=== PATIENT | male | born 1970 | race Caucasian/White ===

== ENCOUNTER 2022-02-25 11:48 | Emergency (ER) | payer MEDICAID, SELFPAY ==
[2022-02-25 11:57] VITALS: BP 120/91; PULSE 86; RESP 20; TEMP 36.6; O2SAT 100
--- NOTE | 2022-02-25 12:01 | ED.SKABFB ---
HPI - Skin/Abscess/Foreign Bdy General Chief complaint: Skin/Abscess/Foreign Body Stated complaint: insect bite. Time Seen by Provider: 02/25/22 12:01 Source: patient Mode of arrival: ambulatory Limitations: no limitations History of Present Illness HPI narrative: 51-year-old male presented for complaint of left elbow/forearm redness and swelling, onset today. He states that the center there is a firm painful knot. No active drainage. He endorses about 1 week ago scraping the elbow while riding the lawnmower, which resulted in an abrasion. The knot is distal to the abrasion with surrounding redness and swelling. Pain is 10/10. Has not taken anything for pain. NKDA, denies ivda. Hx brown recluse spider bite to LLE. Related Data Home Medications Medication Instructions Recorded Confirmed Flexeril 02/25/22 gabapentin 02/25/22 Allergies Allergy/AdvReac Type Severity Reaction Status Date / Time No Known Allergies Allergy Verified 02/25/22 11:59 Review of Systems Review of Systems: CONSTITUTIONAL: Denies body aches, fever, chills, or sweats. EYES: Denies visual changes, redness, or discharge. ENT: Denies rhinorrhea, congestion, sore throat, or otalgia. CARDIOVASCULAR: Denies chest pain, palpitations, or edema. RESPIRATORY: Denies cough or dyspnea. GASTROINTESTINAL: Denies abdominal pain, nausea, vomiting, or diarrhea. GENITOURINARY: Denies dysuria or hematuria. SKIN: endorses redness and swelling to left elbow/forearm MUSCULOSKELETAL: Denies back pain, joint pain, or myalgia. NEUROLOGIC: Denies headache, numbness, tingling, or weakness. PSYCH: Denies depression or anxiety. PMFSH Comments At time of signature, I have reviewed and agree with nursing past medical, surgical, social and family history unless otherwise noted. Please see nursing chart for further information. There is no relevant family history pertinent to the presenting complaint Exam Narrative: GENERAL: Well-appearing HEAD: Normocephalic, atraumatic. EYES: conjunctivae clear, and EOMI. ENT: Mucous membranes moist. Oropharynx without edema, erythema or lesions. NECK: Supple. No lymphadenopathy CHEST: Clear to auscultation. No respiratory distress. HEART: Regular rate and rhythm. SKIN: Warm, dry. Left elbow with abrasion approx 1inch diameter, no active drainage; about 2 inches distal to elbow is firm subcutaneous nodule/flat, approx 1cm diameter with surrounding edema and erythema with mild warmth c/w cellulitis; swelling and erythema not circumferential it spares the volar surface of forearm; no active drainage or fluctuance, center is tender with palpation NEURO: Alert and oriented x3. PSYCH: Normal mood and affect Course Course Emergency Course: Patient is aware of diagnosis, understands and agrees to treatment plan. Anticipatory guidance given. Patient agrees to follow-up as directed and is aware of reasons to seek care at the emergency department. Portions of this record may have been created with voice recognition software Level of Care: Express Care Visit Vital Signs Vital signs: Vital Signs Temperature 97.8 F 02/25/22 11:57 Pulse Rate 86 02/25/22 11:57 Respiratory Rate 20 02/25/22 11:57 Blood Pressure 120/91 H 02/25/22 11:57 Pulse Oximetry 100 02/25/22 11:57 Temperature 97.8 F 02/25/22 11:57 Pulse Rate 86 02/25/22 11:57 Respiratory Rate 20 02/25/22 11:57 Blood Pressure 120/91 H 02/25/22 11:57 Pulse Oximetry 100 02/25/22 11:57 Reviewed MDM - Skin/Abscess/Foreign Bdy MDM Narrative Medical decision making narrative: Does not appear at this time to be erythema multiforme, bullous, SJS, TEN; no evidence at this time to suggest RMSF, endocarditis or Lyme disease Patient looks well, nontoxic; no neurologic signs or symptoms; no headache, photophobia or neck pain; afebrile; c/w cellulitis. Pt appropriate for initial outpatient treatment; no ivda or concern for MRSA at this time. Discussed the import
== END 2022-02-25 12:18 | disposition home or self-care (01) ==
PROVIDERS: Emergency Provider Nurse Practitioner Family
DX: L03.114 Cellulitis of left upper limb (principal)
CPT/HCPCS: 99213; G0463

== ENCOUNTER 2023-08-27 17:29 | Emergency (ER) | payer BC, SELFPAY ==
--- NOTE | ~2023-08-27 | XR_ITS ---
EXAMINATION: XR hand LT min 3V INDICATION: Left hand pain TECHNIQUE: Three views of the left hand are obtained. COMPARISON: None available FINDINGS: Bone alignment is normal. There is no fracture. The joint spaces are normal. There appears to be an old ulnar styloid avulsion with nonunion. There is mild soft tissue swelling at the bases of the fourth and fifth proximal phalanges. There appears to be a 1 mm radiopaque foreign body in the s oft tissues dorsal to the head of the fifth metacarpal. IMPRESSION: 1. No acute osseous abnormality. 2. Probable tiny radiopaque soft tissue foreign body. The head of the fifth metacarpal. Reviewed, dictated and finalized at location F. IMPRESSION: 1. No acute osseous abnormality. 2. Probable tiny radiopaque soft tissue foreign body. The head of the fifth met acarpal.
[2023-08-27 17:30] VITALS: BP 159/100; PULSE 103; RESP 16; TEMP 36.8; O2SAT 100
[2023-08-27] MEDS: LIDOCAINE HCL 1% LOCAL INJ 10 ML VIAL (18:05)
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
[2023-08-27] MEDS: TETANUS,DIPHTHERIA,AC PERTUSSIS ADULT (0.5 ML) BOOSTRIX IM (18:11)
== END 2023-08-27 19:49 | disposition home or self-care (01) ==
PROVIDERS: Emergency Provider Physician Assistant; PCP Physician Assistant
DX: S61.412A Laceration without foreign body of left hand, initial encounter (principal); Z23 Encounter for immunization; W22.8XXA Striking against or struck by other objects, initial encounter
CPT/HCPCS: 12042; 73130; 90471; 90715; 99283

== ENCOUNTER 2024-03-22 12:50 | Emergency (ER) | payer OTHER, SELFPAY ==
--- NOTE | ~2024-03-22 | CT_ITS ---
EXAMINATION: CT brain wo con DATE: 03/22/2024 13:39 INDICATION: Head injury. TECHNIQUE: Computed tomography (CT) of the head was performed without intravenous contrast. The mA wa s adjusted according to patient size. Iterative reconstruction technique was employed. The dose-lengt h product was 605.33 mGy-cm. COMPARISON: None FINDINGS: There is no intracranial hemorrhage, acute infarction, or abnormal intracranial mass lesion . There are scattered areas of low attenuation in the cerebral white matter. The ventricles are vandana l in size. The paranasal sinuses are clear. The orbits are normal. There is a trace left mastoid effu amrita. IMPRESSION: 1. Mild nonspecific cerebral white matter disease, which likely represents chronic small vessel ische hailey disease. Reviewed, dictated and finalized at location A. IMPRESSION: 1. Mild nonspecific cerebral white matter disease, which likely represents ssis ssrs developer wanda small vessel ischemic disease.
--- NOTE | ~2024-03-22 | CT_ITS ---
EXAMINATION: CT lumbar spine wo con DATE: 03/22/2024 13:39 INDICATION: Low back pain. TECHNIQUE: Computed tomography (CT) of the lumbar spine was performed without intravenous contrast. A utomated exposure control and iterative reconstruction technique were employed. The dose-length produ ct was 831.62 mGy-cm. COMPARISON: None FINDINGS: There is 4 degrees dextrocurvature of lumbar spine. There is 2 mm anterolisthesis of L4 on L5. There are changes of anterior and posterior fusion procedures at L5-S1 with healed interbody bone graft, anterior plate and screws, and pedicle screws. There is moderately decreased disc height at L 1-L2 and mildly decreased disc height at L2-L3, L3-L4, and L4-L5. The following disc levels are speci fically discussed: L1-L2: The disc is bulging. There is moderate bilateral facet joint osteoarthritis. There is mild naveed ateral neural foraminal stenosis. There is mild central canal stenosis. L2-L3: The disc is bulging. There is mild bilateral facet joint osteoarthritis. There is moderate rig ht and mild left neural foraminal stenosis. There is mild central canal stenosis. L3-L4: The disc is bulging. There is mild bilateral facet joint osteoarthritis. There is mild bilater al neural foraminal stenosis. There is mild central canal stenosis. L4-L5: The disc is bulging. There is severe bilateral facet joint osteoarthritis. There is moderate b ilateral neural foraminal stenosis. There is mild central canal stenosis. L5-S1: There is mild right and moderate left facet joint hypertrophy. There is mild right and moderat e left neural foraminal stenosis. There is no central canal stenosis. IMPRESSION: 1. No fracture. 2. Moderate lumbar spondylosis. 3. Anterior and posterior fusion procedures at L5-S1. Reviewed, dictated and finalized at location A.
--- NOTE | ~2024-03-22 | CT_ITS ---
EXAMINATION: CT cervical spine wo con DATE: 03/22/2024 13:39 INDICATION: Head injury. Neck pain. TECHNIQUE: Computed tomography (CT) of the cervical spine was performed without intravenous contrast. Automated exposure control and iterative reconstruction technique were employed. The dose-length pro duct was 360.66 mGy-cm. COMPARISON: None FINDINGS: There is a laceration of left neck with subcutaneous soft tissue gas. There is 3 degrees de xtrocurvature of cervical spine. Vertebral body heights are normal. There is severely decreased disc height at C5-C6 and C6-C7. The following disc levels are specifically discussed: C2-C3: There is mild bilateral uncovertebral joint osteoarthritis. There is mild bilateral facet join t osteoarthritis. There is no neural foraminal stenosis. There is no central canal stenosis. C3-C4: There is mild bilateral uncovertebral joint osteoarthritis. There is moderate right and mild l eft facet joint osteoarthritis. There is mild right neural foraminal stenosis. There is mild central canal stenosis. C4-C5: There is mild bilateral uncovertebral joint osteoarthritis. There is mild right and moderate l eft facet joint osteoarthritis. There is no neural foraminal stenosis. There is mild central canal st enosis. C5-C6: There is severe bilateral uncovertebral joint osteoarthritis. There is mild bilateral facet nida int osteoarthritis. There is mild right and moderate left neural foraminal stenosis. There is mild ce ntral canal stenosis. C6-C7: There is severe bilateral uncovertebral joint osteoarthritis. There is moderate bilateral face t joint osteoarthritis. There is mild right and moderate left neural foraminal stenosis. There is mil d central canal stenosis. C7-T1: There is no uncovertebral joint osteoarthritis. There is mild bilateral facet joint osteoarthr itis. There is no neural foraminal stenosis. There is no central canal stenosis. IMPRESSION: 1. No fracture. 2. Severe cervical spondylosis. Reviewed, dictated and finalized at location A.
[2024-03-22 12:52] VITALS: BP 134/102; PULSE 92; RESP 20; TEMP 36.6; O2SAT 99
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
[2024-03-22] MEDS: ACETAMINOPHEN 500 MG TABLET 1000 MG PO (14:51)
[2024-03-22] MEDS: IBUPROFEN 400 MG TABLET 800 MG PO (14:51)
== END 2024-03-22 15:02 | disposition home or self-care (01) ==
PROVIDERS: Emergency Provider Emergency Medicine; PCP Physician Assistant
DX: S41.111A Laceration without foreign body of right upper arm, initial encounter (principal); Y04.2XXA Assault by strike against or bumped into by another person, initial encounter
CPT/HCPCS: 12002; 70450; 72125; 72131; 99284; A9270

== ENCOUNTER 2024-07-24 08:51 | Emergency (ER) | payer OTHER, SELFPAY ==
[2024-07-24 08:52] VITALS: BP 144/102; PULSE 86; RESP 16; TEMP 36.6; O2SAT 97
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
--- NOTE | 2024-07-24 09:38 | PC.NURSE ---
Pt provided with resources for homeless shelters and alcohol and drug rehabs. Care Coordination called for assistance.
[2024-07-24 10:30] VITALS: BP 156/99; PULSE 78; RESP 18; O2SAT 97
--- NOTE | 2024-07-24 15:37 | PCCCNOTE ---
Front End Developer [employer] called to the ED for resources and bus tokens for pt. Pt is homeless and has no transportation. He was given resources for homeless shelters, food pantry's, and addiction assistance. He was also given clean, dry clothes and bus tokens. Pt was shown where the bus stop is and time it would be here, and also what stops to take to get to his destination.
== END 2024-07-24 10:30 | disposition home or self-care (01) ==
PROVIDERS: Emergency Provider Emergency Medicine
DX: F15.10 Other stimulant abuse, uncomplicated (principal); Z59.00 Homelessness unspecified; G89.29 Other chronic pain; M54.9 Dorsalgia, unspecified
CPT/HCPCS: 99281

== ENCOUNTER 2024-11-08 14:02 | Emergency (ER) | payer MEDICAID, SELFPAY ==
--- NOTE | ~2024-11-08 | CT_ITS ---
EXAMINATION: CT lumbar spine wo con DATE: 11/08/2024 15:23 INDICATION: Low back pain. TECHNIQUE: Computed tomography (CT) of the lumbar spine was performed without intravenous contrast. A utomated exposure control and iterative reconstruction technique were employed. The dose-length produ ct was 808.24 mGy-cm. COMPARISON: CT lumbar spine 03/22/2024 FINDINGS: There is 3 mm anterolisthesis of L4 on L5. Vertebral body heights are normal. There are lm nges of anterior posterior fusion procedures at L5-S1 with healed interbody bone graft, anterior plat e and screws, and pedicle screws. There is moderately decreased disc height at L1-L2 and L2-L3, mildl y decreased disc height at L3-L4, and moderately decreased disc height at L4-L5. The following disc l evels are specifically discussed: L1-L2: The disc is bulging. There is mild bilateral facet joint osteoarthritis. There is mild bilater al neural foraminal stenosis. There is mild central canal stenosis. L2-L3: The disc is bulging. There is mild bilateral facet joint osteoarthritis. There is mild bilater al neural foraminal stenosis. There is mild central canal stenosis. L3-L4: The disc is bulging. There is moderate bilateral facet joint osteoarthritis. There is mild naveed ateral neural foraminal stenosis. There is mild central canal stenosis. L4-L5: The disc is bulging. There is severe bilateral facet joint osteoarthritis. There is moderate b ilateral neural foraminal stenosis. There is mild central canal stenosis. L5-S1: There is mild bilateral facet joint hypertrophy. There is mild right and moderate left neural foraminal stenosis. There is no central canal stenosis. IMPRESSION: 1. Moderate lumbar spondylosis, stable from 03/22/2024. 2. Anterior and posterior fusion procedures at L5-S1. Reviewed, dictated and finalized at location A. LATORY SPECIALIST
--- NOTE | ~2024-11-08 | CT_ITS ---
EXAMINATION: CT brain wo con DATE: 11/08/2024 15:23 INDICATION: Head injury. Fall. TECHNIQUE: Computed tomography (CT) of the head was performed without intravenous contrast. The mA wa s adjusted according to patient size. Iterative reconstruction technique was employed. The dose-lengt h product was 908.00 mGy-cm. COMPARISON: Head CT 03/22/2024 FINDINGS: There are scattered areas of low attenuation in the cerebral white matter. There is no intr acranial hemorrhage, acute infarction, or abnormal intracranial mass lesion. The ventricles are vandana l in size. The paranasal sinuses are clear. The orbits are normal. The mastoid air cells are normal. There is a right frontal scalp lipoma. IMPRESSION: 1. Stable mild nonspecific cerebral white matter disease, which likely represents chronic small vesse l ischemic disease. Reviewed, dictated and finalized at location A. PLATER IMPRESSION: 1. Stable mild nonspecific cerebral white matter disease, which likely represen ts chronic small vessel ischemic disease.
[2024-11-08 14:04] VITALS: BP 155/105; PULSE 110; RESP 20; TEMP 36.8; O2SAT 98
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
--- NOTE | 2024-11-08 19:27 | PC.NURSE ---
Pt continually continues to increase in agitation level causing a scene in ED waiting room. Pt escorted out by ED security to edge of property. Lai ROJAS was called for a heads up.
== END 2024-11-08 19:27 | disposition left against medical advice (07) ==
PROVIDERS: Emergency Provider Physician Assistant
DX: M54.50 Low back pain, unspecified (principal); W18.30XA Fall on same level, unspecified, initial encounter; Z59.00 Homelessness unspecified
CPT/HCPCS: 70450; 72131; 99284

== ENCOUNTER 2024-11-18 14:00 | Outpatient (CLI) | payer OTHER, SELFPAY ==
--- NOTE | 2024-11-18 | ECG_ITS ---
Test Date: 2024-11-18 14:36:23 Measurements Intervals Morton Rate: 79 P: 59 SC: 150 QRS: 57 QRSD: 88 T: 72 QT: 348 QTc: 401 Interpretive Statements SINUS RHYTHM No previous ECG available for comparison Electronically Signed On 11-18-2024 14:54:13 DELINQUENT NOTICE MACHINE OPERATOR by Allyson Romo M.D.
--- NOTE | ~2024-11-18 | XR_ITS ---
EXAMINATION: XR chest 2V Exam Date/Time: 11/18/2024 14:14 INDUSTRIAL FABRIC CUTTER HISTORY: Dyspnea Comparison: None. RESULT: Lines, tubes, and devices: None. Lungs and pleura: Clear. Cardiomediastinal silhouette: Unremarkable. Other: No acute osseous or upper abdominal finding. IMPRESSION: No acute cardiopulmonary process. Reviewed, dictated and finalized at location K. STRIAL FABRIC CUTTER
== END 2024-11-18 14:01 | disposition home or self-care (01) ==
PROVIDERS: Visit Provider Internal Medicine
DX: R06.09 Other forms of dyspnea (principal); R07.9 Chest pain, unspecified
CPT/HCPCS: 71046; 93005

== ENCOUNTER 2024-11-22 02:23 | Emergency (ER) | payer OTHER, SELFPAY ==
--- NOTE | ~2024-11-22 | XR_ITS ---
Portable chest x-ray Comparison: 11/18/2024 Clinical History: Cough Findings: Lungs are clear, without focal consolidation or pleural effusion. Cardiomediastinal silho uette is stable. Bones and soft tissues are unremarkable. Impression: Clear lungs. Reviewed, dictated and finalized at location . EPOINT ADMINISTRATOR Impression: Clear lungs.
[2024-11-22 02:26] VITALS: BP 168/110; PULSE 107; RESP 15; TEMP 37.1; O2SAT 96
--- NOTE | 2024-11-22 02:32 | ECG_ITS ---
Test Date: 2024-11-22 02:34:27 Measurements Intervals [place] Rate: 107 P: 53 [place]: 152 QRS: 56 QRSD: 84 T: 71 QT: 306 QTc: 410 Interpretive Statements SINUS TACHYCARDIA ABNORMAL RHYTHM ECG Compared to ECG 11/18/2024 14:36:23 Sinus rhythm no longer present Electronically Signed On 11-22-2024 10:43:54 WELDING SYSTEMS AND EQUIPMENT REPAIRER by Niles Chawla M.D.
--- NOTE | 2024-11-22 02:32 | ED.SOB ---
HPI - SOB/Dyspnea General Chief Complaint: Shortness of Breath/Dyspnea <Paramjit Bob PA-C - Last Filed: 11/22/24 02:37> Stated Complaint: can't breath, coughing up blood <SUKH Parnell Last Filed: 11/22/24 02:37> Time Seen by Provider: 11/22/24 02:27 <SUKH Parnell Last Filed: 11/22/24 02:37> Source: patient <SUKH Parnell Last Filed: 11/22/24 02:37> Mode of arrival: ambulatory <SUKH Parnell Last Filed: 11/22/24 02:37> Limitations: no limitations <SUKH Parnell Last Filed: 11/22/24 02:37> History of Present Illness HPI Narrative: This is a 53-year-old male who presents to the ED for chief complaint of fevers, cough over the past 7 days. Patient states that he feels short of breath. Endorses lower central chest pain that was worse with coughing and with deep breathing. States that he gets pneumonia every year and feels like he has it again now. States that he has had productive cough yellow mucus and occasional blood-tinged sputum. States that he does not smoke and has not smoked for 30 years. Endorses intermittent nausea and dizziness. He is currently at the [facility]. <SUKH Parnell Last Filed: 11/22/24 02:37> Related Data Home Medications: Home Medications ?Medication ?Instructions ?Recorded ?Confirmed ?Last Taken ?Type Flexeril 02/25/22 Unknown History gabapentin 02/25/22 Unknown History <SUKH Parnell Last Filed: 11/22/24 02:37> Allergies/Adverse Reactions: Allergies Allergy/AdvReac Type Severity Reaction Status Date / Time No Known Allergies Allergy Verified 11/18/24 12:08 <SUKH Parnell Last Filed: 11/22/24 02:37> Review of Systems Review of Systems: All systems as dictated in HPI <SUKH Parnell Last Filed: 11/22/24 02:37> [facility] Past Medical History Medical History: Medical History Chronic lower back pain No active medical problems <Paramjit Bob PA-C - Last Filed: 11/22/24 02:37> Social History Social History: Social History Smoking status: Never smoker <Paramjit Bob PA-C - Last Filed: 11/22/24 02:37> Exam Narrative: GENERAL: Well-appearing, well-nourished, and in no acute distress. HEAD: Normocephalic, atraumatic. EYES: PERRLA and EOMI. ENT: Nares clear, no rhinorrhea or epistaxis. Mucous membranes moist. Oropharynx without tonsillar hypertrophy exudate or other lesions. NECK: Supple. No adenopathy or masses. CHEST: No respiratory distress. Clear to auscultation. No wheezes rales or rhonchi HEART: Regular rate and rhythm. No murmur heard. Normal peripheral pulses. ABDOMEN: Soft, nontender, nondistended, normal active bowel sounds. MSK: Normal range of motion. No edema. SKIN: Warm, dry, no rash. NEURO: Alert and oriented x4. No focal deficits. PSYCH: Normal mood and affect. <Paramjit Bob PA-C - Last Filed: 11/22/24 02:37> Course Vital Signs Vital signs: Vital Signs Temperature 98.8 F 11/22/24 02:26 Pulse Rate 107 H 11/22/24 02:26 Respiratory Rate 15 11/22/24 02:26 Blood Pressure 168/110 H 11/22/24 02:26 Pulse Oximetry 96 11/22/24 02:26 Oxygen Delivery Room Air 11/22/24 02:26 Temperature 98.8 F 11/22/24 02:26 Pulse Rate 112 H 11/22/24 04:08 Respiratory Rate 16 11/22/24 04:08 Blood Pressure 142/83 H 11/22/24 04:08 Pulse Oximetry 98 11/22/24 04:08 Oxygen Delivery Room Air 11/22/24 04:12 Fraction of Inspired Oxygen 98 11/22/24 04:12 <Paramjit Bob PA-C - Last Filed: 11/22/24 02:37> Vital Signs Temperature 98.8 F 11/22/24 02:26 Pulse Rate 107 H 11/22/24 02:26 Respiratory Rate 15 11/22/24 02:26 Blood Pressure 168/110 H 11/22/24 02:26 Pulse Oximetry 96 11/22/24 02:26 Oxygen Delivery Room Air 11/22/24 02:26 Temperature 98.8 F 11/22/24 02:26 Pulse Rate 112 H 11/22/24 04:08 Respiratory Rate 16 11/22/24 04:08 Blood Pressure 142/83 H 11/22/24 04:08 Pulse Oximetry 98 11/22/24 04:08 Oxygen Delivery Room Air 11/22/24 04:12 Fraction of Inspired Oxygen 98 11/22/24 04:12 <Zehra Larson MD - Last Filed: 11/22/24 06:08> MDM - SOB/Dyspnea MDM Narrative Medical decision making narrative: This is a 53-year-old male who presents to the ED for chief complaint of productive cough and fevers. Vitals show mildly elevated heart rate and elevated blood pressure on arrival. Afebrile. Saturating well on room air. CBC, CMP ordered as well as viral swabs. Chest x-ray ordered as well. Zofran odt given for nausea. Patient will be handed off to attending Dr. Larson at the time of shift change. <Paramjit Bob PA-C - Last Filed: 11/22/24 02:37> This is a 53-year-old male who presents to the ED for chief complaint of productive cough and fevers. Vitals show mildly elevated heart rate and elevated blood pressure on arrival. Afebrile. Saturating well on room air. CBC, CMP ordered as well as viral swabs. Chest x-ray ordered as well. Zofran odt given for nausea. Patient will be handed off to attending Dr. Larson at the time of shift change. Patient signed out to me pending workup. Blood work revealed elevated liver enzymes with an AST of 201 and an ALT of 112 otherwise unremarkable. Patient was informed that he will need to have his liver enzymes rechecked by his primary care physician for monitoring. Instructed to follow-up with his family doctor within the next 3-5 days. Viral swabs did return back positive for influenza a and patient was informed of this, and given that the patient's symptoms started 7 days ago he does not qualify for Tamiflu. Patient is requesting that his inhaler be refilled, albuterol and this script was sent to his pharmacy. He was provided with strict return precautions and instructed to return to the emergency department if any new or worsening symptoms develop. He was discharged in stable condition. <Zehra Larson MD - Last Filed: 11/22/24 06:08> Lab Data Result diagrams: 11/22/24 02:39 11/22/24 02:39 <Paramjit Bob PA-C - Last Filed: 11/22/24 02:37> Labs: Lab Results 11/22/24 11/22/24 11/22/24 Range/Units 02:36 02:39 02:42 WBC 10.3 H (4.5-10.0) K/mm3 RBC 4.63 (4.6-6.20) M/mm3 Hgb 13.7 L (14.0-18.0) g/dL Hct 40.7 L (42.0-52.0) % MCV 87.9 (80-100) fl MCH 29.6 (26-34) pg MCHC 33.7 (32-36) g/dl RDW 13.4 (11.5-14.5) % Plt Count 185 (150-375) k/mm3 MPV 9.9 (7.4-10.4) fl Immature Gran % (Auto) Not Reportable Neut % (Auto) Not Reportable Lymph % (Auto) Not Reportable [place] % (Auto) Not Reportable Eos % (Auto) Not Reportable Baso % (Auto) Not Reportable Lymph # (Auto) Not Reportable [place] # (Auto) Not Reportable Eos # (Auto) Not Reportable Baso # (Auto) Not Reportable Abs Immat Gran (auto) Not Reportable Absolute Neuts (auto) Not Reportable Absolute Nucleated RBC Not Reportable Total Counted 100 Neutrophils % (Manual) 82 H (46-73) % Band Neutrophils % 5 (0-6) % Lymphocytes % (Manual) 5.0 L (18-44) % Monocytes % (Manual) 5 (3-9) % Eosinophils % (Manual) 3 (0-4) % Nucleated RBC % Not Reportable Abs Neuts (Manual) 8.96 H (1.3-6.7) K/mm3 Abs Lymphs (Manual) 0.51 L (1.1-4.5) K/mm3 Abs Monocytes (Manual) 0.51 (0.1-0.90) K/mm3 Absolute Eos (Manual) 0.30 (0.02-0.50) K/mm3 Platelet Estimate Adequate (Adequate) Anisocytosis 1+ Schistocytes None seen Sodium 137 (137-145) mmol/L Potassium 4.4 (3.4-5.0) mmol/L Chloride 102 (98-107) mmol/L Carbon Dioxide 28 (22-30) mmol/L Anion Gap 7 (4-12) mmol/L BUN 18 (9-20) mg/dL Creatinine 0.86 (0.7-1.3) mg/dL Estim Creat Clear Calc 93 ml/min Estimated GFR > 60 (59 - ) Glucose 120 H (65-110) mg/dL Calcium 8.8 (8.4-10.2) mg/dL Magnesium 1.7 (1.6-2.3) mg/dL Total Bilirubin 0.5 (0.2-1.3) mg/dL AST 201 H (17-59) U/L ALT 112 H (6-50) U/L Alkaline Phosphatase 101 (38-126) U/L Total Protein 7.0 (6.3-8.2) g/dL Albumin 3.9 (3.5-5.1) g/dL Influenza A (RT-PCR) Positive A (Negative) Influenza B (RT-PCR) Negative (Negative) RSV (RT-PCR) Negative (Negative) SARS-CoV-2 RNA (RT-PCR) Negative (Negative) <Paramjit Bob PA-C - Last Filed: 11/22/24 02:37> Lab Results 11/22/24 11/22/24 11/22/24 Range/Units 02:36 02:39 02:42 WBC 10.3 H (4.5-10.0) K/mm3 RBC 4.63 (4.6-6.20) M/mm3 Hgb 13.7 L (14.0-18.0) g/dL Hct 40.7 L (42.0-52.0) % MCV 87.9 (80-100) fl MCH 29.6 (26-34) pg MCHC 33.7 (32-36) g/dl RDW 13.4 (11.5-14.5) % Plt Count 185 (150-375) k/mm3 MPV 9.9 (7.4-10.4) fl Immature Gran % (Auto) Not Reportable Neut % (Auto) Not Reportable Lymph % (Auto) Not Reportable [place] % (Auto) Not Reportable Eos % (Auto) Not Reportable Baso % (Auto) Not Reportable Lymph # (Auto) Not Reportable [place] # (Auto) Not Reportable Eos # (Auto) Not Reportable Baso # (Auto) Not Reportable Abs Immat Gran (auto) Not Reportable Absolute Neuts (auto) Not Reportable Absolute Nucleated RBC Not Reportable Total Counted 100 Neutrophils % (Manual) 82 H (46-73) % Band Neutrophils % 5 (0-6) % Lymphocytes % (Manual) 5.0 L (18-44) % Monocytes % (Manual) 5 (3-9) % Eosinophils % (Manual) 3 (0-4) % Nucleated RBC % Not Reportable Abs Neuts (Manual) 8.96 H (1.3-6.7) K/mm3 Abs Lymphs (Manual) 0.51 L (1.1-4.5) K/mm3 Abs Monocytes (Manual) 0.51 (0.1-0.90) K/mm3 Absolute Eos (Manual) 0.30 (0.02-0.50) K/mm3 Platelet Estimate Adequate (Adequate) Anisocytosis 1+ Schistocytes None seen Sodium 137 (137-145) mmol/L Potassium 4.4 (3.4-5.0) mmol/L Chloride 102 (98-107) mmol/L Carbon Dioxide 28 (22-30) mmol/L Anion Gap 7 (4-12) mmol/L BUN 18 (9-20) mg/dL Creatinine 0.86 (0.7-1.3) mg/dL Estim Creat Clear Calc 93 ml/min Estimated GFR > 60 (59 - ) Glucose 120 H (65-110) mg/dL Calcium 8.8 (8.4-10.2) mg/dL Magnesium 1.7 (1.6-2.3) mg/dL Total Bilirubin 0.5 (0.2-1.3) mg/dL AST 201 H (17-59) U/L ALT 112 H (6-50) U/L Alkaline Phosphatase 101 (38-126) U/L Total Protein 7.0 (6.3-8.2) g/dL Albumin 3.9 (3.5-5.1) g/dL Influenza A (RT-PCR) Positive A (Negative) Influenza B (RT-PCR) Negative (Negative) RSV (RT-PCR) Negative (Negative) SARS-CoV-2 RNA (RT-PCR) Negative (Negative) <Zehra Larson MD - Last Filed: 11/22/24 06:08> Discharge Plan Discharge Clinical Impression: Influenza A, Productive cough, Transaminitis <Paramjit Bob PA-C - Last Filed: 11/22/24 02:37> Patient Disposition: Home, Self-Care <Paramjit Bob PA-C - Last Filed: 11/22/24 02:37> Condition: Improved <Paramjit Bob PA-C - Last Filed: 11/22/24 02:37> Instructions: Antibiotic Form, Influenza (ED), Transaminitis (ED) <Paramjit Bob PA-C - Last Filed: 11/22/24 02:37> Additional Instructions: Please follow-up with your family doctor within the next 3-5 days. Return to the emergency department for new or worsening symptoms develop. Your liver enzymes were elevated today and this will need to be rechecked by your primary care physician to monitor. <Paramjit Bob PA-C - Last Filed: 11/22/24 02:37> Patient Language: Kazakh <Paramjit Bob PA-C - Last Filed: 11/22/24 02:37> Prescriptions: New albuterol sulfate [Ventolin HFA] 90 mcg/actuation HFA aerosol inhaler 1 inh inhalation QID PRN (Reason: shortness of breath or wheezing) Qty: 6.7 0RF albuterol sulfate [Ventolin HFA] 90 mcg/actuation HFA aerosol inhaler 1 inh inhalation QID PRN (Reason: shortness of breath or wheezing) Qty: 6.7 0RF No Action Flexeril gabapentin ibuprofen 800 mg tablet 800 mg PO TID PRN (Reason: pain) 7 Days Qty: 21 0RF acetaminophen 500 mg tablet 1,000 mg PO TID PRN (Reason: maged) 7 Days Qty: 42 0RF methocarbamol 750 mg tablet 1,500 mg PO TID Qty: 35 0RF cephalexin 500 mg capsule 500 mg PO Q12H Qty: 10 0RF albuterol sulfate 90 mcg/actuation HFA aerosol inhaler 2 puff inhalation QID PRN (Reason: shortness of breath or wheezing) Qty: 8.5 0RF cephalexin 500 mg capsule 500 mg PO Q8H 5 Days Qty: 15 0RF <Paramjit Bob PA-C - Last Filed: 11/22/24 02:37> Follow-up/Referrals: Be Sahni MD [Physician] - 3 Days UNKNOWN,DOCTOR [Primary Care Provider] - <Paramjit Bob PA-C - Last Filed: 11/22/24 02:37> Time of Disposition: 03:45 <Paramjit Bob PA-C - Last Filed: 11/22/24 02:37> 03:45 <Zehra Larson MD - Last Filed: 11/22/24 06:08>
[2024-11-22] MEDS: ONDANSETRON HCL ODT 4 MG TABLET PO (02:38)
[2024-11-22 02:48] LABS: Hematocrit 40.7 % (42.0-52.0); Hemoglobin 13.7 g/dL (14.0-18.0); Mean Corpuscular HGB Conc 33.7 g/dl (32-36); Mean Corpuscular Hemoglobin 29.6 pg (26-34); Mean Corpuscular Volume 87.9 fl (80-100); Mean Platelet Volume 9.9 fl (7.4-10.4); Platelet Count Result 185 k/mm3 (150-375); Red Blood Count 4.63 M/mm3 (4.6-6.20); Red Cell Distribution Width 13.4 % (11.5-14.5); White Blood Count 10.3 K/mm3 (4.5-10.0)
[2024-11-22 02:59] LABS: Alanine Aminotransferase 112 U/L (6-50); Albumin Level 3.9 g/dL (3.5-5.1); Alkaline Phosphatase 101 U/L (38-126); Anion Gap 7 mmol/L (4-12); Aspartate Amino Transferase 201 U/L (17-59); Bilirubin,Total 0.5 mg/dL (0.2-1.3); Blood Urea Nitrogen 18 mg/dL (9-20); Calcium 8.8 mg/dL (8.4-10.2); Carbon Dioxide 28 mmol/L (22-30); Chloride 102 mmol/L (98-107); Estimated CRCL calculation 93 ml/min; Estimated Glomerular Filt Rate > 60; Glucose 120 mg/dL (65-110); Potassium 4.4 mmol/L (3.4-5.0); Sodium 137 mmol/L (137-145)
[2024-11-22 03:00] LABS: Magnesium 1.7 mg/dL (1.6-2.3)
[2024-11-22 03:24] LABS: Band Neutrophils Percent 5 % (0-6); Eosinophils Percent Manual 3 % (0-4); Lymphocytes Absolute Manual 0.51 K/mm3 (1.1-4.5); Monocytes Absolute Manual 0.51 K/mm3 (0.1-0.90); Monocytes Percent Manual 5 % (3-9); Neutrophils Absolute Manual 8.96 K/mm3 (1.3-6.7); Neutrophils Percent Manual 82 % (46-73); Platelet Estimate Adequate (Adequate); Total Cells Counted 100
[2024-11-22 03:25] LABS: Anisocytosis 1+; Schistocytes None Seen
[2024-11-22 03:25] LABS: Influenza A QL RT-PCR Positive (Negative); Influenza B QL RT-PCR Negative (Negative); RSV RNA, RT-PCR Negative (Negative); SARS-CoV-2 RNA PCR Negative (Negative)
[2024-11-22 03:47] VITALS: BP 161/119; PULSE 114; RESP 23
[2024-11-22 04:08] VITALS: BP 142/83; PULSE 112; RESP 16; O2SAT 98
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
--- OUTSIDE RECORDS SUMMARY | 2024-11-24 15:18 | XMS_ITS ---
Author Organization [facility] Address [address] [place] [address] Care Team Providers Care [employer] Name Role Phone Carl Castaneda Primary Care Provider [phone] Daniel Manuel Unavailable [phone] Allergies No Known Allergies REASON FOR VISIT MRU Medications Medication SIG (Take, Route, Frequency, Duration) Notes Start Date End Date Status Influenza Vac Subunit Quad 0.5 ML as directed Intramuscular once for 1 days Active Benzonatate 100 MG 1 capsule as needed Orally Three times a day As needed Active ARIPiprazole 5 MG 1 tablet Orally Once a day Active Influenza Vac Split Quad 0.5 ML as directed Intramuscular once Active FLUoxetine HCl 20 MG 1 capsule Orally On ce a day Active Influenza Vac Subunit Quad 0.5 ML as directed Intramuscular once for 1 days Active Cyclobenzaprine HCl 10 MG 1 tablet as needed Orally every 8 hrs As needed Active guaiFENesin 200 MG 1 tablet as needed Orally every 6 hrs As needed Active Influenza Vac Subunit Quad 0.5 ML as directed Intramuscular Ac tive Influenza Vac Subunit Quad 0.5 ML as directed Intramuscular once for 1 days Active Immunizations Vaccine Route Administration Date Status Comme nts Influenza, virus vaccine, trivalent, preservative free IM Intramuscular 11/15/2024 Partially Administered Lyubov Galvan 11/15/2024 02:59:22 PM [employer] >Given LMD and may have been a faulty needle as some of the injection leaked out from the bottom of the hub. 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 Social History Tobacco Use: Social History Observation Description Date Details (start date - stop date) Current some da y smoker NA - NA Tobacco Control (Standard) Question Answer Notes Tobacco use: Current some day smoker Additional Findings: Tobacco user e-cigarette Problems Problem Type SNOMED Code ICD Code Onset Dates Problem Status W/U Status Risk Notes Problem Tobacco user ([id number]) Nicotine dependence, unspecified, uncomplicated (F17.200) Active confirmed Vital Signs Weight 172.2 lbs 11/15/2024 Height 71 in 11/15/2024 BMI 24.01 kg/m2 11/15/2024 Blood pressure systolic 128 mm Hg 11/15/19 25 Blood pressure diastolic 76 mm Hg 025 Heart Rate 95 /min 11/15/2024 Oximetry 96 % 11/15/2024 Respiratory Rate 16 /min 11/15/2024 Encounters Encounter Location Date Provider Diagnosis [facility] [place] [address] [place] [address] 11/15/2024 Daniel Manuel Encounter for immunization Z23 ; Routine physical examination Z00.00 ; Nicotine dependence, unspecified, uncomplicated F17.200 ; Tuberculosis screening Z11.1 and STD exposure Z20.2 Assessments Encounter Date Diagnosis (ICD Code) Assessment Notes Treatment Notes Treatment Clinical Notes Section Notes 11/15/2024 Encounter for immunization (ICD-10 - Z23) pt tolerated well. Ordered per standing orders for administering influenza vaccine to adults Ordered per standing orders for administering influenza vaccine to adults. Ordered per standing orders for administering influenza vaccine to adults. Ordered per standing orders for administering influenza vaccine to adults. 11/15/2024 Routine physical examination (ICD-10 - Z00.00) Continue MRU protocol. Encouraged regular f/u with PCP for recommended screenings and physicals. 11/15/2024 Nicotine dependence, unspecified, uncomplicated (ICD-10 - F17.200) 11/15/2024 Tuberculosis screening (ICD-10 - Z11.1) 11/15/2024 STD exposure (ICD-10 - Z20.2) Plan Of Treatment Medication Medication Name Sig Start Date Stop Date Notes Influenza Vac Subunit Quad 0.5 ML as directed Intramuscular once for 1 days Influenza Vac Split Quad 0.5 ML as directed Intramuscular once Influenza Vac Subunit Quad 0.5 ML as directed Intramuscular once for 1 days Influenza Vac Subunit Quad 0.5 ML as directed Intramuscular Influenza Vac Subunit Quad 0.5 ML as directed Intramuscular once for 1 days Treatment Notes Assessment Notes Encounter for immunization pt tolerated well. Routine physical examination Continue MRU protocol. Encouraged regular f/u with PCP for recommended screenings and physicals. Next Appt Details Follow Up: prn, Reason: Progress Notes * Shane MCKINNONDOB:1970 (53 yo M)Acc No.[id number]:11/15/2024 Patient:?Shane MCKINNON Provider:?Daniel Manuel, MSN, FUND ACCOUNTING MANAGER, FN P-C :1970???Age:53 Y???Sex:Male Blayne e:11/15/2024 Phone: Address:[address] [place], [place] [address]N [id number] Pcp:Dominique Ahmadi Check In:02:35 PM [employer] Subjective: * Chief Complaints: * ???MRU * HPI: ???Preventative Health and Wellness follow-up:?Action Plans for Clinical Quality Measures:?Colorectal Cancer Screening:?Discussed need for colorectal cancer screening. Patient declined. ?HIV Screening:?Discussed need for HIV screening. Order placed. ?. ???CSSRS Interpretation and Follow Up Plan:?CSSRS Interpretation and Follow Up Plan?CSSRS Screen documented using SF?Yes ?Risk Disposition from SF?Low - No Follow Up Plan Required ?Follow Up Plan?Moderate/High: Warm hand off to Behavioral Health Pt is on the CRU in [place] ???Interim History:?Emergency room visit?Yes.?Was hospitalized?No.?Depression Screening:?PHQ-9?Little interest or pleasure in doing things?Nearly every day ?Feeling down, depressed, or hopeless?Nearly every day ?Trouble falling or staying asleep, or sleeping too much?More than half the days ?Feeling tired or having little energy?More than half the days ?Poor appetite or overeating?Not at all ?Feeling [...] been moving around a lot more than usual?Several days ?Thoughts that you would be better off or of hurting yourself in some way?Nearly every day (Consider Suicide Assessment Risk) ?Total Score?20 ?Interpretation?Severe Depression ?Intervention?Depression Screening Findings?Positive ?Follow-Up for Depression?Patient is admitted to a [facility] unit where their mental health is monitored - unit nursing staff have access to this encounter note ???Screening:?[place] Suicide Severity Rating Scale (LF)?Do you want to initiate with?Screener form ?1. Wish to be : Have you wished you were or wished you could go to sleep and not wake up??Yes ?2. Suicidal Thoughts: Have you actually had any thoughts of killing yourself??Yes ?3. Suicidal Thoughts with Method (without Specific Plan or Intent to Act): Have you been thinking about how you might do this??Yes ?4. Suicidal Intent (without Specific Plan): Have you had these thoughts and had some intention of acting on them??Yes ?5. Suicide Intent with Specific Plan: Have you started to work out or worked out the details of how to kill yourself? Do you intend to carry out this plan??No ?6. Suicide Behaviour: Have you ever done anything,started to do anything, or prepared to end your life??No ?Interpretation:?Moderate Risk ???Influenza Immunization:?Influenza Immunization Screening Questionnaire?Has fever or is ill??No . ?Has had influenza immunization in past??No . ?Had serious reaction to influenza immunization in past?No . ?Had reaction to eggs or egg products??No . ?Had Guillain-T[place] Syndrome (GBS)??No . ?Has an allergy to Thimerosal or mercury products??No . ?Result of clinical decision regarding administering immunization?Based on questionnaire answers, can administer immunization . ?Verbal Consent given:?Patient provided verbal consent. ?Recipient Category?Is the patient a [employer] employee??No ?Vaccine recipient is an established [employer] patient??No ?Has patient received vaccine(s) from [employer] in the past??Yes ?Was The Patient Educated On This Vaccine??Yes ???Summary:? Mr. Mckinnon presents for a routine physical. Admitted to the MRU following discharge from [facility] for treatment of psychiatric concerns. 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 * ROS:?Basic ROS:?Denies?Chills.?Denies?Sweats.?Denies?Constipation.?Insomnia?Denies.?Admits? Anxiety.?Admits?Depressed Mood.?Denies?Suicidal Thoughts.? * Medical History:? * Surgical History:?spinal katie cortney 2017 * Hospitalization/Major Diagno stic Procedure:?Broke both arms, legs and neck [facility] stay 11/2024 * Family History:?Father: dece ased.?Mother: alive, Diabetic.?1 brother(s) , 1 sister(s) - healthy. 1 son(s) , 1 daughter(s) - healthy. .? * Social History:?Primary Social History:?Living Arrangement?Living Arrangement:?Homeless ?Alcohol Use?Alcohol Use Frequency:?Never ?Illicit Substance Usage?Illicit Substance Usage:?Yes Pt reports Meth last use 11/09/2024 ?Substance Used:?Methamphetamine ?Employment Status?Employment Status:?Unemployed Pt reported attempting to get on disability ???Tobacco Use:?Tobacco Control (Standard)?Tobacco use:?Current some day smoker ?Additional Findings: Tobacco user?e-cigarette ???Miscellaneous:?Method of learning?Preferred method of learning:?Demonstration * Medications:?TakingBenzonata te 100 MG Capsule 1 capsule as needed Orally Three times a day As neededCyclobenzaprine HCl 10 MG Tablet 1 tablet as needed Orally every 8 hrs As neededguaiFENesin 200 MG Tablet 1 tablet as needed Orally every 6 hrs As neededARIPiprazole 5 MG Tablet 1 tablet Orally Once a day FLUoxetine HCl 20 MG Capsule 1 capsule Orally Once a day Medication List reviewed and reconciled with the patientTaking Benzonatate 100 MG Capsule 1 capsule as needed Orally Three times a day As neededTaking Cyclobenzaprine HCl 10 MG Tablet 1 tablet as needed Orally every 8 hrs As neededTaking guaiFENesin 200 MG Tablet 1 tablet as needed Orally every 6 hrs As neededTaking ARIPiprazole 5 MG Tablet 1 tablet Orally Once a day Taking FLUoxetine HCl 20 MG Capsule 1 capsule Orally Once a day Medication List reviewed and reconciled with the patient * Allergies:?N.K.D.A.no[Allerg ies Verified] Objective: * Vitals:?Initials: jn, Wt:172 .2, Ht: 71, BMI:24.01, BP:128/76, HR:95, Oxygen sat %:96, RR:16, Pain scale:8. * Examination: ???Activity Permissions and Medication Self Administration: ?Activity Level & Medication Self-Administration Permissions?General Examination: ?GENERAL APPEARANCE:?pleasant, in no acute distress.?EYES:?PERRLA.?EARS?auditory canal clear, tympanic membrane intact, clear, light reflex present, BOTH EARS.?NECK/THYROID:?MASOUD.?SKIN:?no rashes, warm and dry.?HEART:?regular rate and rhythm, no murmurs, no rubs.?LUNGS:?respirations regular and easy, clear to auscultation bilaterally.?ABDOMEN:?bowel sounds present, soft, nontender, nondistended, no masses palpable.?MUSCULOSKELETAL:?MASOUD upper and lower extremities.?EXTREMITIES:?good capillary refill in nail beds, no edema.?PERIPHERAL PULSES:?normal.?NEUROLOGIC:?gait normal.?PSYCH:?speech clear, cooperative with exam, alert, oriented x4, judgement and insight good, thought process logical, goal directed.? Assessment: * Assessment: 1.?Encounter for immunizatio n - Z23???2.?Routine physical examination - Z00.00 (Primary)???3.?Nicotine dependence, unspecified, uncomplicated - F17.200???4.?Tuberculosis screening - Z11.1???5.?STD exposure - Z20.2??? Plan: * Treatment: 2.?Encounter for immunizatio n? Start Influenza Vac Split Quad Suspension Prefilled Syringe, 0.5 ML, as directed, Intramuscular, once, Refills 0;?Start Influenza Vac Subunit Quad Suspension Prefilled Syringe, 0.5 ML, as directed, Intramuscular, once, 1 days, 0.5 Milliliter, Refills 0;?Start Influenza Vac Subunit Quad Suspension Prefilled Syringe, 0.5 ML, as directed, Intramuscular, once, 1 days, 0.5 Milliliter, Refills 0;?Start Influenza Vac Subunit Quad Suspension Prefilled Syringe, 0.5 ML, as directed, Intramuscular, once, 1 days, 0.5 Milliliter, Refills 0.?? Notes: pt tolerated well.?? Clinical Notes: Ordered per standing orders for administering influenza vaccine to adults Ordered per standing orders for administering influenza vaccine to adults. Ordered per standing orders for administering influenza vaccine to adults. Ordered per standing orders for administering influenza vaccine to adults.?? 3.?Tuberculosis screening?LAB: QuantiFERON-TB Gold Plus (Ordered for 11/22/2024) 4.?STD exposure?LAB: HIV Screen *HIV 1, 2 Ab, p24 Ag (Ordered for 11/22/2024) ?LAB: Rapid Plasma Reagin (RPR) Test With Reflex to Quantitative RPR and Confirmatory Treponema pallidum Antibodies (Ordered for 11/22/2024) 5.?Others? Start Influenza Vac Subunit Quad Suspension Prefilled Syringe, 0.5 ML, as directed, Intramuscular.?? * Recommended Wellness and Pre vention Guidelines: * ?Status ?Alert ?Last Done ?Next Due ?Action Taken ?NONCOMPLIANT ?Colorectal cancer screening ?- ? ?- ?NONCOMPLIANT ?HIV screening ?- ?11/15/2024 ?- ?NONCOMPLIANT ?Influenza vaccine (over 50) ?- ? ?- * Immunizations:? Influenza, virus vaccine, trivalent, preservative free : 0.5 mL (Dose No:1) (Route: Intramuscular) given by ENEIDA Lawton on Left Deltoid (Partially Administered) (Encounter for immunization) * Procedure Codes:?01309 BEHAV CHNG SMOKING 3-10 [id number] Flu Vaccine [id number] IIV3 VACC NO PRSV 0.5 ML [id number] IMMUNIZATION ADMIN * Preventive Medicine:? ??Counseling:?Care goal follow-up plan:?BMI management provided?Yes ?Above Normal BMI Follow-up?Lifestyle education regarding diet ?SMOKING:?Patient counselled on the dangers of tobacco use and urged to quit.?. * Follow Up:?prn * * [employer] Sign off status: Completed true * Provider:?Jordy Mendoza, JUDITH, FIGURE CLERK-C Date:?11/15/2024 Generated for Pretty dobbs/Anshu/eTransmitting on:?11/24/2024 03:18 PM [employer] History and Physical Notes * HPI (History of Present Illness) Category Sub-Category Detail Notes Category Not es Interim History Was hospitalized No Emergency room visit Yes Depression Screening PHQ-9 Little inte rest or pleasure in doing things: Nearly every day Feeling down, depressed, or hopeless: Ne joann every day Trouble falling or staying a sleep, or sleeping too much: More than half the days Feeling tired or having little energy: M ore than half the days Poor appetite or overeating: Not at all [...] moving around a lot more than usual: Several days Thoughts that you would be b sandra off or of hurting yourself in some way: Nearly every day (Consider Suicide Assessment Risk) Total Score: 20 Interpretation: Severe Depression Intervention Depression Screening Findings: P ositive Follow-Up for Depression: Leonardo duncan is admitted to a [facility] unit where their mental health is monitored - unit nursing staff have access to this encounter note Summary Mr. Mckinnon presents for a routine physical. Admitted to the MRU following discharge from [facility] for treatment of psychiatric concerns. 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 Influenza Immunization Influenza Immunization Screening Questionnaire Has fever or is ill?: No . Has had influenza immunization in past?: No . Had serious reaction to influenza immuni zation in past: No . Had reaction to eggs or egg products?: N o . Had Guillain-T[place] Syndrome (GBS)?: No . Has an allergy to Thimerosal or mercury products?: No . Result of clinical decision regarding administering immunization: Based on questionnaire answers, can administer immunization . Verbal Consent given:: Patient provided verbal consent. Recipient Category Is the patient a [place] emp loyee?: No Vaccine recipient is an established [place] [employer] patient?: No Has patient received vaccine(s) from [facility]el[facility] in the past?: Yes Was The Patient Educated On This Vaccine ?: Yes Screening [place] Suicide Sev erity Rating Scale (LF) Do you want to initiate with: Screener form ?1. Wish to be : Have yo u wished you were or wished you could go to sleep and not wake up?: Yes ?2. Suicidal Thoughts: Have you actually had any thoughts of killing yourself?: Yes ??3. Suicidal Thoughts with Method (without Specific Plan or Intent to Act): Have you been thinking about how you might do this?: Yes ??4. Suicidal Intent (withou t Specific Plan): Have you had these thoughts and had some intention of acting on them?: Yes ??5. Suicide Intent with Spe cific Plan: Have you started to work out or worked out the details of how to kill yourself? Do you intend to carry out this plan?: No ?6. Suicide Behaviour: Have you ever done anything,started to do anything, or prepared to end your life?: No ?Interpretation:: Moderate Risk Preventative Health and Wellness follow-up Action Plans for Clinical Quality Measures: Colorectal Cancer Screening:: Discussed need for colorectal cancer screening. Patient declined. . HIV Screening:: Discussed need for HIV s creening. Order placed. CSSRS Interpretation and Follow Up Plan CSSRS Interpretation and Follow Up Plan CSSRS Screen documented using SF: Yes Risk Disposition from SF: Lo w - No Follow Up Plan Required Follow Up Plan: Moderate/Hig h: Warm hand off to Behavioral Health Pt is on the CRU in [place] Examination Category Sub-Category Detail Notes Category Not es General Examination GENERAL APPEARANCE: pleasant, in n o acute distress EYES: PERRLA EARS auditory canal clear , tympanic membrane intact, clear, light reflex present, BOTH EARS NECK/THYROID: MASOUD HEART: regular rate and rhy thm, no murmurs, no rubs LUNGS: respirations regular and easy, clear to auscultation bilaterally ABDOMEN: bowel sounds present , soft, nontender, nondistended, no masses palpable NEUROLOGIC: gait normal SKIN: no rashes, warm and dry EXTREMITIES: good capillary refil l in nail beds, no edema PERIPHERAL PULSES: normal MUSCULOSKELETAL: MASOUD upper and lower extremities PSYCH: speech clear, karl ative with exam, alert, oriented x4, judgement and insight good, thought process logical, goal directed Activity Permissions and Medication Self Administration Activity Level & Medication Self-Administration Permissions Activity Level Permitted:: The patient/client may fully take part in physical fitness programming including aerobic, muscular strength, and flexibility training without restriction. Medication Self-Administrati on Permissions:: Medications may be self- administered by the patient/client under the supervision of approved staff or administered by nursing staff.
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
== END 2024-11-22 04:03 | disposition home or self-care (01) ==
LOC: ANHED 03:51
PROVIDERS: Physician Assistant; Emergency Provider Emergency Medicine
DX: J10.1 Influenza due to other identified influenza virus with other respiratory manifestations (principal); R74.01 Elevation of levels of liver transaminase levels; Z20.822 Contact with and (suspected) exposure to COVID-19
CPT/HCPCS: 36415; 71045; 80053; 83735; 85025; 87637; 93005; 99283; A9270

== ENCOUNTER 2025-05-12 21:29 | Emergency (ER) | payer OTHER, SELFPAY ==
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
--- NOTE | ~2025-05-12 | XR_ITS ---
SINGLE AP VIEW PELVIS Ordering provider: Lily Kingston PA-C History: . fall . Comparison: None. FINDINGS: BONES: No acute fracture or dislocation. Postoperative changes at the level of L5-S1. HIP JOINT SPACES: Normal. SACROILIAC JOINT SPACES/LUMBAR SPINE: The sacroiliac joint spaces are normal. Mild degenerative garcia es of the visualized lower lumbar spine. PUBIC SYMPHYSIS: Normal. SOFT TISSUES: Normal. IMPRESSION: No acute osseous abnormality pelvis. Reviewed, dictated and finalized at location A.
--- NOTE | ~2025-05-12 | XR_ITS ---
XR chest 1V Ordering provider: Lily Kingston PA-C History: 54 years Male with . fall . Comparison: November 22, 2024 FINDINGS: MEDIASTINUM: The cardiac silhouette is not enlarged. LUNGS: No infiltrates, effusions or pneumothorax. Prominent bronchovascular markings in the lower lobes. OTHER: No free air under the diaphragm. Fracture of the right clavicle. IMPRESSION: No acute cardiopulmonary pathology. Fracture of the right clavicle. Reviewed, dictated and finalized at location A.
--- NOTE | ~2025-05-12 | CT_ITS ---
CT cervical spine wo con Ordering provider: Lily Kingston PA-C History: . head injury . Comparison: None. Technique: CT of the cervical spine was performed without contrast. Sagittal and coronal reformatted images were also obtained and reviewed. Automated exposure control and iterative reconstruction christopher hnique were employed. The dose-length product was 291.12 mGy-cm. FINDINGS: VERTEBRAE: Anterior syndesmophytes is seen suggestive of DISH. No subluxation or acute fracture. The occipital condyles are intact. DISC SPACES: Narrowing of the disc C5-C6 and C6-C7. Multilevel uncovertebral joint osteoarthritic lm nges. Multilevel intervertebral foraminal narrowing. PARASPINOUS SOFT TISSUES: Normal. IMPRESSION: No acute osseous abnormality cervical spine. DISH changes. Multilevel degenerative disc disease. Reviewed, dictated and finalized at location A.
--- NOTE | ~2025-05-12 | XR_ITS ---
XR shoulder RT min 2V Ordering provider: Zehra Larson MD History: . Trauma . Comparison: None. FINDINGS: BONES: Fracture in the right clavicle at the junction of the proximal two thirds and distal one third . Minimal displacement seen. JOINT SPACES: Moderate acromioclavicular arthropathy. The glenohumeral joint is normal. SOFT TISSUES: Normal. IMPRESSION: Fracture of the right clavicle. Reviewed, dictated and finalized at location A.
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
--- OUTSIDE RECORDS SUMMARY | 2025-05-12 21:31 | XMS_ITS ---
Author Organization Counts include 234 beds at the [facility] Address [address] [place] [address] Care Team Providers Care Dog Licenser Name Role Phone Carl Castaneda Primary Care Provider REASON FOR VISIT lab Encounters Encounter Location Date Provider Diagnosis [place] [address] [place] [address] 11/23/2024 Carl Castaneda Plan Of Treatment No Information Progress Notes * Shane MCKINNONDOB:1970 (54 yo M)Acc No.[id number]:11/23/2024 UNLOCKED PROGRESS NOTE Patient: Shane LOPEZ Provider: Myesha Castaneda :1970 A ge:53 Y S ex:Male Date:11/23/2024 Phone: Address:[address] [place], [place] [id number] Subjective: * Chief Complaints: * 1 . Lab. * Medical History: Objective: * Vitals: Assessment: Plan: * Treatment: * * Electronic signature of Krystle Castaneda , [id number] on 05/12/2025 at 09:31 PM CDT Sign off status: Pending * Provider: Myesha Castaneda Date: 0 11/23/2024 Generated for Pretty dobbs/Anshu/Phoebe on: 0 05/12/2025 09:31 PM CDT
[2025-05-12 21:32] VITALS: BP 142/94; PULSE 95; RESP 16; TEMP 36.3; O2SAT 98
--- OUTSIDE RECORDS SUMMARY | 2025-05-12 22:14 | XMS_ITS | Clinical Summary ---
Author Organization [facility] Address [facility] [place] [address] Care Team Providers Care Cattle Broker Name Role Phone Kye Okeefe MD Primary Care Provider [phone] Allergies No known active allergies Medications cyclobenzaprine (FLEXERIL) 10 mg tablet 07/23/2018 Active oxyCODONE-aceta minophen (PERCOCET) 10-325 mg per tabletIndicatio ns:Pain TK 1 T PO UP TO QID PRF SEVERE PAIN 11/25/2017 Active ALPRAZolam (XANAX) 0.25 mg tablet Take 0.25 mg by mouth nightly as needed 12/29/2019 Active escitalopram (LEXAPRO) 20 mg tablet Take 1 tablet (20 mg total) by mouth daily 30 tablet 02/08/2020 Active albuterol HFA (PROVENTIL HFA,VENTOLIN HFA,PROAIR HFA) 90 mcg/actuation inhaler Inhale 2 puffs every 6 (six) hours as needed for wheezing (march inhaler at bedside) 1 Inhaler 07/19/2020 Active Active Problems Problem Noted Date Diagnosed Date Lumbar pseudoarthrosis 12/30/2018 Surgical History Surgery Date Site/Laterality Comments BACK SURGERY Medical History Medical History Date Comments Depression Depression Anxiety disorder Anxiety Hypertension Hypertension Hx Other Medical Back surgery; C omments: EMB 04/16/2016 - Social History Tobacco Use Types Packs/Day Years Used Date Smoking Tobacco: Former Smokeless Tobacco: Never Alcohol Use Standard Drinks/Week Comments No 0 (1 standard drink = 0.6 oz pur e alcohol) Sex and Gender Information Value Date Recorded Sex Assigned at Not on file 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 Gender Identity Not on file Sexual Orientation Not on file Obstetrics History Last Filed Vital Signs Vital Sign Reading Time Taken Comments Blood Pressure 147/103 07/19/2020 8:48 AM CDT Pulse 94 07/19/2020 8:48 AM CDT Temperature 36.9 C (98.4 F) 07/19/2020 8:48 AM CDT Respiratory Rate 16 07/19/2020 8:48 AM CDT Oxygen Saturation 97% 07/19/2020 8:48 AM CDT Inhaled Oxygen Concentration - - Weight 87.6 kg (193 lb 1.6 oz) 07/17/2020 10:20 AM CDT Height 180.3 cm (5' 11) 07/18/2020 12:35 PM CDT Body Mass Index 26.93 07/17/2020 10:20 AM CDT Plan of Treatment Not on file Insurance [email or web address] ACCESS Advance Directives For more information, please contact: [phone] * Full Code (Latest Code Status on File) Date Activated Date Inactivated Comments 07/17/2020 10:24 AM 07/19/2020 3:28 PM * Full Code Date Activated Date Inactivated Comments 02/04/2020 11:42 AM 02/07/2020 3:07 PM Care Teams Cattle Broker Relationship Specialty Start Date End Date Kye Okeefe MD PCP - General 04/16/16
--- OUTSIDE RECORDS SUMMARY | 2025-05-12 22:14 | XMS_ITS | Referral Summary ---
Author Organization [facility] Address [address] [place] [address] Care Team Providers Care Employment Services Director Name Role Phone Kye Okeefe MD Primary Care Provider [phone] Allergies No known active allergies Medications cyclobenzaprine [...] Noted Date Diagnosed Date Lumbar pseudoarthrosis 12/30/2018 Social History Tobacco Use Types Packs/Day Years Used Date Smoking Tobacco: Former Smokeless Tobacco: Never Alcohol Use Standard Drinks/Week Comments No 0 (1 standard drink = 0.6 oz pur e alcohol) Sex and Gender Information Value Date Recorded Sex Assigned at Not on file 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
--- OUTSIDE RECORDS SUMMARY | 2025-05-12 22:14 | XMS_ITS | Encounter Summary ---
Author Organization [employer] [facility] Address 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 Gender Identity Not on file Sexual Orientation Not on file documented as of this encounter Plan of Treatment Not on file documented as of this encounter Visit Diagnoses Diagnosis Foreign body in cornea- Primary documented in this encounter Additional Health Concerns Infection Onset Date Last Indicated Resolved Time R/O COVID-19 08/16/2020 08/16/2020 08/16/2020 6:57 AM CDT R/O COVID-19 09/10/2020 09/10/2020 09/11/2020 5:26 AM CARTON FORMING 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
--- OUTSIDE RECORDS SUMMARY | 2025-05-12 22:14 | XMS_ITS | Encounter Summary ---
Author Organization [employer] [facility] Address 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
--- OUTSIDE RECORDS SUMMARY | 2025-05-12 22:14 | XMS_ITS | Clinical Summary ---
Author Organization [facility] Address [address] [place] [id number] Care Team Providers Care Making Department Preparer Name Role Phone Unavailable Primary Care Provider Unavailabl e Social History Tobacco Use Types Packs/Day Years Used Date Smoking Tobacco: Never Assessed Sex and Gender Information Value Date Recorded Sex Assigned at Not on file Legal Sex Male 5:27 PM CDT Gender Identity Not on file Sexual Orientation Not on file Plan of Treatment Health Maintenance Due Date Last Done Comments Colorectal Cancer Screening Colonoscopy (10 Years) 1970 Annual Physical 1973 Hepatitis C 1988 DTaP, Tdap and Td Vaccines ( 1 - Tdap) 1989 Hepatitis B Vaccines (1 of 3 - 19+ 3-dose series) 1989 Pneumococcal Vaccine: 50+ Ye ars (1 of 1 - PCV) 2020 Zoster Vaccines (1 of 2) 2020 COVID-19 Vaccine ( - 2023-2 5 season) 2024 Meningococcal B Vaccine Aged Out No l onger eligible based on patient's age to complete this topic Meningococcal Vaccine Aged Out No denisha wilder eligible based on patient's age to complete this topic RSV Immunizations Under 20 Months Aged Out No longer eligible based on patient's age to complete this topic
--- OUTSIDE RECORDS SUMMARY | 2025-05-12 22:14 | XMS_ITS | Clinical Summary ---
Author Organization [facility] Address [address] [place] [address] Phone Care Team Providers Care Fuel Cell Engineer Name Role Phone Kathryn Cox MD Primary Care Provider +1- [phone] Allergies No known active allergies Medications albuterol sulfate 90 mcg/Actuation inhalerIndication s:Dyspnea, unspecified type INHALE 2 PUFFS BY MOUTH EVERY 6 HOURS NEEDED FOR SHORTNESS OF BREATH 8.5 Gram 2 1 Active fluticasone propionate (Flovent HFA) 44 mcg/Actuation HFA Aerosol Inhaler Take 2 Puffs by inhalation 2 times daily. rinse mouth after using 12 Gram 11 1 Active Tadalafil (Cialis) 10 mg tabletIndications :Erectile dysfunction, unspecified erectile dysfunction type Take 10-20 mg by mouth 1 time daily as needed for Erectile Dysfunction. 10 Tablet 2 Active dextroamphetamine -amphetamine (ADDERALL) 20 mg tabletIndications :Attention deficit hyperactivity disorder (ADHD), unspecified ADHD type Take 1 Tablet (20 mg) by mouth 3 times daily. Max Daily Amount: 60 mg 90 Tablet 2 Active gabapentin (NEURONTIN) 600 mg tabletIndications :Chronic low back pain, unspecified back pain laterality, unspecified whether sciatica present Take 1 Tablet (600 mg) by mouth 3 times daily. 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 Anxiety state 07/25/2018 Chronic back pain 07/25/2018 HTN (hypertension), benign 11/19/2017 Lumbar canal stenosis 08/25/2016 Overview (08/25/2016): L5 S1 - disc herniation Allergic rhinitis 03/11/2016 Herniation of lumbar intervertebral disc with ra diculopathy Resolved Problems Problem Noted Date Diagnosed Date Resolved Date Pneumonia due to infectious organism 02/24/2021 05/16/2021 Acute hypoxemic respiratory failure 08/19/2020 05/16/2021 Acute midline low back pain with right-sided sciatica 10/21/2018 05/07/2020 Cellulitis 07/25/2018 05/07/2020 Acute midline low back pain with sciatica 08/25/2016 07/25/2018 Anxiety attack 04/16/2016 07/25/2018 Nausea and vomiting 03/11/2016 07/25/20 18 Chest pain 03/11/2016 03/11/2016 Ulnar artery thrombus, 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 07/25/2018 Atypical chest pain 07/25/20 18 Immunizations Immunization Administration Dates Next Due (ADACEL/BOOSTRIX)(10 YR UP) TDAP VACCINE, 0.5ML, IM 07/26/2018 (PNEUMOVAX 23)(50 YRS UP) PN EUMOCOCCAL POLYSACCHARIDE (PPV23) 0.5 ML, IM 08/20/2020 Family History Medical History Relation Name Comments Cancer Brother Dwight Healthy Brother Dwight Prostate cancer diagnosed Healthy Daughter Arabella Unknown Father n/a Depression Mother Yasemin Unknown Mother Yasemin Healthy Sister Roxann Healthy Son Mark Colon Cancer Neg Hx Relation Name Status Comments Brother Dwight Alive Daughter Arabella Alive Father n/a Alive Mother Yasemin Alive Sister Roxann Alive Son Mark Alive Social History Tobacco Use Types Packs/Day Years Used Date Smoking Tobacco: Former Cigarettes 0.5 4 0 12/22/1987 - 12/22/1991 Smokeless Tobacco: Never Tobacco Cessation:Counseling Given: Yes Alcohol Use Standard Drinks/Week Comments Not Currently 0 (1 standard drink = 0.6 oz pur e alcohol) occ Sex and Gender Information Value Date Recorded Sex Assigned at Not on file 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 Gender Identity Not on file Sexual Orientation Not on file Occupation Industry Job Start Date Job End Date Not on file Not on file Not on file Not on file Last Filed Vital Signs Vital Sign Reading Time Taken Comments Blood Pressure 118/80 07/10/2022 2:15 PM CDT Pulse 96 07/10/2022 2:15 PM CDT Temperature 36.7 C (98 F) 07/10/2022 2:15 PM CDT Respiratory Rate 14 10/31/2021 1:09 PM CORPORATE 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 Oxygen Saturation 98% 07/10/2022 2:15 PM CDT Inhaled Oxygen Concentration - - Weight 69.9 kg (154 lb) 07/10/2022 2:15 PM CDT Height 180.3 cm (5' 11) 07/10/2022 2:15 PM CDT Body Mass Index 21.48 07/10/2022 2:15 PM CDT Plan of Treatment Health Maintenance Due Date Last Done Comments HEPATITIS B VACCINES (1 of 3 - 19+ 3-dose series) 1989 FIT-DNA Q 3 years 2015 FIT/FOBT Q 1 year 2015 Flex Sig/CT Colonography Q 5 years 2015 ZOSTER VACCINE (1 of 2) 2020 INFLUENZA VACCINE (#1) 2025 08/20/2020 DTAP/TDAP/TD VACCINES (2 - Td or Tdap) 07/26/2028 COLORECTAL SCREENING 07/30/2031 07/30/2021, 07/30/20 21 Colorectal Cancer Screening 07/30/2031 Medical Devices Implanted Type Area Shower Screen Installer Device Identifier Shelf Expiration Date Model / Serial / Lot Sealant Floseal W/ Adptr 10ml [id number] - [id number] Implanted:Qty : 1 on 08/27/2016 by Silvio Whitfield MD at [facility] Sealant N/A: Spine Lumbar REN- BIOSCIENCE [id number] 12/02/2017 [id number] / / [id number] Procedures Procedure Name Priority Date/Time Associated Diagnosis Comments COLONOSCOPY REPORT 07/30/2021 11 :07 AM CDT from Last 3 Months or Most Recently Relevant to Health Maintenance Results * COLONOSCOPY REPORT (07/30/2021 11:07 AM CDT) Narrative Procedure Note Amber Sarabia MD - 07/30/2021 11:06 AM CDT [facility] Endoscopy Patient Name: Shane Chavis Procedure Date: 07/30/2021 Date of : 1970 Attending MD: Amber Sarabia MD Procedure: Colonoscopy Indications: Screening for colorectal malignant neoplasm Providers: Amber Sarabia MD Referring MD: Kathryn Cox MD Medicines: Monitored Anesthesia Care Complications: No immediate complications. Procedure: Informed consent was obtained for the procedure, including moderate sedation after risks were discussed. Based on the pre-procedure assessment, including review of the patient's medical history, medications, allergies, and review of systems, the patient was deemed to be an appropriate candidate for sedation. A timeout was performed. Continuous ECG monitoring, pulse oximetry, blood pressure monitoring, and direct observation were performed. The Colonoscope was introduced through the anus and advanced to the ascending colon. The colonoscopy was performed without difficulty. The patient tolerated the procedure well. The quality of the bowel preparation was poor. Estimated Blood Loss: Estimated blood loss was minimal. Findings: The perianal and digital rectal examinations were normal. A large amount of stool was found in the entire colon, precluding visualization. The exam was otherwise without abnormality on direct and retroflexion views. Impression: - Preparation of the colon was poor. - Stool in the entire examined colon. - The examination was otherwise normal on direct and retroflexion views. - No specimens collected. Recommendation: - Patient has a contact number available for emergencies. The signs and symptoms of potential delayed complications were discussed with the patient. Return to normal activities tomorrow. Written discharge instructions were provided to the patient. - Resume previous diet. - Continue present medications. - Repeat colonoscopy within 3 months for screening purposes. Amber Sarabia MD 07/30/2021 11:06:43 AM Number of Addenda: [address]; [place] [address] Amber Sarabia MD GI PROCEDURE ORDERABLES F inal Result from Last 3 Months or Most Recently Relevant to Health Maintenance Insurance [employer] [address] [place] [address] [place] [id number] [place] [address] Advance Directives For more information, please contact: [phone] * Full Code (Latest Code Status on File) Date Activated Date Inactivated Comments 02/24/2021 8:45 AM 02/25/2021 1:21 PM * Full Code Date Activated Date Inactivated Comments 09/11/2020 9:27 AM 09/12/2020 8:41 PM * Full Code Date Activated Date Inactivated Comments 10/21/2018 5:21 PM 10/22/2018 4:41 PM * Full Code Date Activated Date Inactivated Comments 07/24/2018 11:39 PM 07/28/2018 4:33 PM * Full Code Date Activated Date Inactivated Comments 08/27/2016 6:12 PM 08/28/2016 3:08 PM Care Teams Fuel Cell Engineer Relationship Specialty Start Date End Date Kathryn Cox MD PCP - General Family Practice 12/03/21
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
[2025-05-12] MEDS: HYDROcodone/acetaminophen (*CRX) 5-325 MG TABLET 1 TAB PO (22:58)
[2025-05-12] MEDS: ONDANSETRON HCL ODT 4 MG TABLET PO (22:58)
[2025-05-13 00:23] VITALS: BP 149/102; PULSE 80; RESP 15; O2SAT 98
== END 2025-05-13 01:21 | disposition home or self-care (01) ==
PROVIDERS: Emergency Provider Physician Assistant; PCP Internal Medicine
DX: S01.01XA Laceration without foreign body of scalp, initial encounter (principal); S42.031A Displaced fracture of lateral end of right clavicle, initial encounter for closed fracture; M50.322 Other cervical disc degeneration at C5-C6 level; M48.02 Spinal stenosis, cervical region; V18.4XXA Pedal cycle driver injured in noncollision transport accident in traffic accident, initial encounter
CPT/HCPCS: 12001; 70450; 71045; 72125; 72170; 73030; 99284; A4565; A9270